=== PATIENT | male | born 1980 | race Caucasian/White ===

== ENCOUNTER → 2018-12-12 | Outpatient (REF) | payer OTHER ==
[~2018-12-12] MED LIST: ALLO100T70 PO; DIA5 PO; ENAL20TA99 PO; GUAI480S48 PO; IBU800 PO; INDO-1 PO; INDO50CA92 PO; ONDA4TAB PO; PAN40 PO; PER PO; z pack
== END ==
LOC: ZZSENDIN 10:18
PROVIDERS: ATTEND Family Medicine
DX: I10 Essential (primary) hypertension (principal)
CPT/HCPCS: 82310; 82374; 82435; 82565; 82947; 84132; 84295; 84520

== ENCOUNTER → 2019-04-20 | Outpatient (REF) | payer OTHER, BC ==
[2019-04-20 16:06] LABS: PLATELET COUNT, AUTOMATED 449 K/uL (150-450)
== END ==
LOC: ZZSTITCHES 15:50
PROVIDERS: ATTEND Physician Assistant
DX: R10.11 Right upper quadrant pain (principal); R53.81 Other malaise; M79.10 Myalgia, unspecified site
CPT/HCPCS: 82040; 82247; 82310; 82374; 82435; 82565; 82947; 84075; 84132; 84155; 84295; 84450; 84460; 84520; 85025; 86140

== ENCOUNTER → 2019-06-01 | Outpatient (REF) | payer OTHER ==
[2019-06-01 19:05] LABS: PLATELET COUNT, AUTOMATED 306 K/uL (150-450)
== END ==
LOC: ZZSENDIN 18:58
PROVIDERS: ATTEND Physician Assistant
DX: R10.11 Right upper quadrant pain (principal); K92.1 Melena; R10.13 Epigastric pain
CPT/HCPCS: 82040; 82247; 82310; 82374; 82435; 82565; 82947; 83690; 84075; 84132; 84155; 84295; 84450; 84460; 84520; 85025